=== PATIENT | female | born 1970 | race Caucasian/White ===

== ENCOUNTER 2022-04-21 10:36 | Day surgery (SDC) | payer MEDICAID, SELFPAY ==
--- NOTE | 2022-04-13 11:53 | EKG12_ITS ---
Test Reason : PRE OP Blood Pressure : / mmHG Vent. Rate : 079 BPM Atrial Rate : 079 BPM P-R Int : 162 ms QRS Dur : 090 ms QT Int : 390 ms P-R-T Axes : 029 -28 017 degrees QTc Int : 447 ms Normal sinus rhythm Normal ECG Confirmed by NATE VAZQUEZ, BASSAM ([id number]), offline editor ALEK ECHEVERRIA ([id number]) on 04/15/2022 1:45:20 P M Referred By: Amish Josue Confirmed By:SIS SULLIVAN MD
--- NOTE | 2022-04-13 11:55 | RAD_ITS ---
STUDY: X-RAY CHEST REASON FOR EXAM: Female, 52 years old. Preoperative evaluation. TECHNIQUE: Frontal and lateral views of the chest. COMPARISON: None. FINDINGS: The lungs are clear and expanded. There is no demonstrated pleural abnormality. Normal size heart. Normal mediastinum and galina. Normal visualized pulmonary arteries. Normal visualized aortic arch and descending thoracic aorta. Normal visualized thoracic spine. Normal visualized ribs, clavicles, and shoulders. There is no demonstrated abnormality of the visualized soft tissue structures of the upper abdomen. RAD/Chest PA and Lateral IMPRESSION: No active or acute cardiopulmonary disease. Electronically Signed: Chris Watts, at 12:15 EDT ,
[2022-04-13 13:38] LABS: Hematocrit 42.9 % (37-47); Mean Corp Hgb Conc 32.6 g/dL (32-36); Mean Platelet Vol. 10.3 fl (6.2-12.0); Platelet Count 348 K/mm3 (150-450); RBC Distribution Width CV 15.5 % (11.6-14.6); RBC Distribution Width SD 50.9 fl (35.1-43.9); Red Blood Count 4.82 M/mm3 (4.2-5.4); White Blood Count 7.3 K/mm3 (4.4-11.0)
[2022-04-13 14:19] LABS: Anion Gap 6 (5-15); BUN 13 mg/dL (7-18); BUN/Creat Ratio 11.7 RATIO (10-20); Calcium,Total 9.1 mg/dL (8.5-10.1); Chloride 107 mmol/L (98-107); Creatinine, Serum 1.11 mg/dL (0.55-1.02); EST Glomerular Filtration Rate 55 mL/min (>60); Est Glom Filt Rate - Afr Amer 67 mL/min (>60); Glucose 74 mg/dL (74-106); Potassium 4.4 mmol/L (3.5-5.1); Sodium Level 141 mmol/L (136-145)
[2022-04-21] VITALS (8 sets, daily range): BP systolic 124–166; BP diastolic 72–104; PULSE 79–92; RESP 16–20; TEMP 36.2–36.7; O2SAT 92–100; BMI 39.9
[2022-04-21] MEDS: Lactated Ringers 1,000 ML 15 ML IV (11:15)
[2022-04-21] MEDS: Cefazolin 2 GM in 0.9% Normal Saline 100 ML IV (12:45)
[2022-04-21] MEDS: Epinephrine (1 mg/ml) 1 MG/ML VIAL (13:08)
[2022-04-21] MEDS: Bupivacaine 0.25% 30 ML Vial (13:10)
[2022-04-21] MEDS: Acetaminophen 500 MG Tablet 1000 MG PO (13:29)
--- NOTE | 2022-04-21 13:32 | DCINST_ITS ---
Discharge Instructions Follow Up Care Test Results: Test results from this visit will be discussed in further detail at your follow- up appointment, if applicable. Discharge Plan Admission Primary Reason for Your Visit: Right knee arthroscopy Attending Provider: Amish Josue Primary Care Provider: JOSE TEMPLE Instructions Additional Instructions / Restrictions: Follow preprinted instructions from your surgeons office Discharge Orders/Prescriptions Prescriptions: No Action quetiapine [Seroquel] 25 mg Tablet 25 - 50 mg PO QHS gabapentin 600 mg Tablet 600 mg PO 4X/DAY diphenoxylate-atropine [Lomotil] 2.5-0.025 mg Tablet 1 tab PO TID fexofenadine 180 mg Tablet 180 mg PO DAILY amitriptyline 10 mg Tablet 10 mg PO BID fluoxetine [Prozac] 20 mg Capsule 20 mg PO DAILY hydroxyzine pamoate [Vistaril] 25 mg Capsule 25 mg PO BID PRN (Reason: Anxiety) cyclobenzaprine 5 mg Tablet 10 mg PO BID PRN (Reason: Spasms) biotin 2,500 mcg Capsule 2,500 mcg PO DAILY Eurothyoid 0.132 mcg PO/SL DAILY Referrals / Follow Up: JOSE TEMPLE [Other] Amish Josue DO [Med Staff - Active Staff] - Within 2 Weeks Disposition Disposition (needs filled in before D/C Order can be placed): Home, Self Care
--- NOTE | 2022-04-21 13:46 | OP.PCM_ITS ---
Report of Operation Date of Procedure: 04/21/22 Description of Surgical Findings:: Preoperative diagnosis: 1. Right knee lateral meniscus tear 2. Right knee lateral compartment chondromalacia 3. 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 Right knee lateral meniscus tear 2. Right knee medial meniscus tear 3. 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 Zambrano Complications: None apparent Estimated blood loss: 10 cc IV fluids: Per anesthesia record Implants: None Intraoperative findings: Grade III chondromalacia lateral tibial plateau White white zone anterior horn lateral meniscus tear Central white white zone fraying medial meniscus Lipoma arborescens of the suprapatellar fat pad Preoperative indications: This is an otherwise healthy 52-year-old female seen in the outpatient setting for right knee pain. She failed nonoperative treatment in the form of activity modification, Tylenol, corticosteroid injections. MRI was obtained. MRI demonstrated lateral meniscus tear as well as chondromalacia of the lateral joint space, lipoma arborescens in the suprasellar fat pad. Operative intervention was offered in the form of right knee diagnostic and operative arthroscopy with partial lateral meniscectomy, lateral compartment chondroplas ty, and excision of suprapatellar lipoma arborescens. The risks, benefits, alternatives to the procedure was reviewed with the patient at length. Risks included but were not limited to bleeding, wound complications, infection, loss of life or limb, need for additional surgery, persistent pain, stiffness, risk of anesthesia, DVT or PE, neurovascular injury. Patient expressed understanding his risks and wished to proceed with surgery. Informed consent obtained in the office. Description of procedure: Patient was identified in preoperative holding area by name, medical record number, and date of . The operative extremity was marked. Informed consent confirmed with the patient. All questions were answered to patient satisfaction. At time of her procedure, patient was brought to the operative suite and positioned supine on a standard operating table. All bony prominences were well-padded. General anesthesia was induced and laryngeal mask airway placed. After securing the tube, I placed a well-padded pneumatic tourniquet on the upper thigh of the operative extremity. We placed a arthroscopic posterior along the lateral thigh and attaches to the bed. We kept the patient in the supine position throughout the procedure. We then prepped and draped the operative lower extremity in a normal, sterile orthopedic fashion. We performed a timeout with all parties in attendance in agreement with the side, site, operation to be performed. No concerns were voiced and we elected to proceed with surgery. 2 g Ancef was administered for antibiotic prophylaxis prior to the incision by the anesthesia staff. For same with the right lower extremity and Esmarch bandage. Tourniquet was inflated to 300 mmHg remained up for 22 minutes. Esmarch was removed. I position the knee in 90 degrees of flexion. I established in the standard anterior lateral portal with an 11 blade scalpel. Blunt tipped trocar and cannula was inserted through this portal as the knee was brought into full extension into the patellofemoral joint. Trocar was removed and arthroscope introduced. Examination of the knee revealed hypertrophic fat in the suprapatellar fat pad consistent with lipoma arborescens. Medial lateral gutter was unremarkable other than some moderate synovitis. Patellofemoral joint was pristine. I then entered the medial compartment with a valgus stress. Anterior medial portal was established under direct visualization with a spinal needle and 11 blade scalpel. There was some fraying noted at the central portion of the medial meniscus. This was trimmed to a stable edge approximately 2 mm with meniscal biters and radial resector. Cartilage appeared pristine. I then repositioned the knee 90 degrees examined the intercondylar notch. Hypertrophic fat pad was noted and debrided with a radial resector. ACL was probed and was stable. I then positioned in the right lower extremity in a [id number] position to enter the lateral compartment. I immediately noted tearing of the anterior horn of the lateral meniscus which appeared to be unstable flap tear similar to a reverse parrot-beak. In similar fashion, this was debrided with meniscal biters and radial resector to a stable rim. Grade III chondromalacia was noted in the tibial plateau, lateral femoral condyle cartilage was pristine. I debrided any loose chondral edges with a radial resector to stable rim. I reentered the patellofemoral joint. The lipoma was then excised with a radial resector. Appearance of the suprapatellar fat pad. Within normal limits at this point. I then thoroughly irrigated the knee with normal saline solution. Arthroscopic instruments were removed. I anesthetized the knee and portal sites with 30 cc 0.25% plain bupivacaine. Portal sites were closed in [id number] fashion with 4-0 nylon suture. Sterile compression dressing was applied. Tourniquet was deflated. Patient was then safely extubated operative suite and transferred to a gurney and subsequently PACU in stable condition. Need for skilled assistant infant toddler teacher: Nanda Lewis PA-C was critical to the outcome of the case. During the course of the procedure the physician assistant infant toddler teacher played a vital role. Her intimate knowledge of my steps in the procedure aided in safe and expedient completion of the procedure. She assisted with positioning the limb which was more difficult due to the patient's BMI of 39.9. She also played a vital role in closure and dressing application with my direct supervision. Postoperative plan: Patient will be weightbearing and range of motion as tolerated right lower extremity. Prescription for oxycodone was provided as an outpatient. Tylenol also recommended. Ice and elevation recommended. Aspirin 81 mg twice daily for DVT prophylaxis. Follow-up in 2 weeks for suture removal as scheduled.
[2022-04-21] MEDS: oxyCODONE 5 MG Tablet 10 MG PO (15:22)
== END 2022-04-21 15:57 | disposition home or self-care (01) ==
LOC: SDC 10:39 → AC 10:39
PROVIDERS: Referring Provider Student in an Organized Health Care Education/Training Program; Visit Provider Student in an Organized Health Care Education/Training Program
PROC: (CPT 29870; principal; 2022-04-21 12:10)
DX: S83.241A Other tear of medial meniscus, current injury, right knee, initial encounter (principal); E66.01 Morbid (severe) obesity due to excess calories; Z68.41 Body mass index [BMI] 40.0-44.9, adult; S83.281A Other tear of lateral meniscus, current injury, right knee, initial encounter; X58.XXXA Exposure to other specified factors, initial encounter; D17.23 Benign lipomatous neoplasm of skin and subcutaneous tissue of right leg; M94.261 Chondromalacia, right knee; Z79.899 Other long term (current) drug therapy; K21.9 Gastro-esophageal reflux disease without esophagitis; F32.A Depression, unspecified; E03.9 Hypothyroidism, unspecified; Z79.890 Hormone replacement therapy; F17.210 Nicotine dependence, cigarettes, uncomplicated; M17.11 Unilateral primary osteoarthritis, right knee
CPT/HCPCS: 29880; 01400; 27327; 36415; 71046; 80048; 85027; 93005; J7120; J2405